=== PATIENT | female | born 2000 | race Caucasian/White ===

== ENCOUNTER 2018-02-21 11:11 | Inpatient (IN) ==
[2018-02-21] MEDS ORDERED: fentaNYL Citrate Inj 100 MCG/2 ML Ampul IV.PUSH PRN ×2 (15:29)
[2018-02-21] MEDS ORDERED: Naloxone Inj 0.4 MG/ML Vial IV.PUSH PRN (15:29)
[2018-02-21] MEDS ORDERED: Oxytocin 30 Units/500ml Premix 30 UNITS/500 ML BAG IV.SIG ONE (15:29)
[2018-02-21] MEDS ORDERED: Sodium Chlor 0.9% Inj 500 ML IV.SIG PRN (15:29)
[2018-02-21] MEDS ORDERED: Sod Chloride 0.9% Inj 1,000 ML IV.CONT PRN (15:29)
[2018-02-21] MEDS ORDERED: Citric Acid/Sodium Citrate Liq 30 ML UDC PO SCH (15:30)
[2018-02-21 15:39] LABS: Baso # (Auto) 0.1 th/mm3 (0.0-0.2); Baso % (Auto) 0.4 % (0.0-2.0); Eos # (Auto) 0.1 th/mm3 (0.0-0.4); Eos % (Auto) 0.6 % (0.0-4.0); Hematocrit 30.9 % (35.0-46.0); Hemoglobin 9.9 gm/dL (11.6-15.3); Lymph # (Auto) 2.4 th/mm3 (1.0-4.8); Lymph % (Auto) 20.7 % (9.0-44.0); Mean Corpuscular HGB Conc 32.1 % (32.0-36.0); Mean Corpuscular Hemoglobin 27.2 pg (27.0-34.0); Mean Corpuscular Volume 84.8 fL (80.0-100.0); Mean Platelet Volume 9.4 fL (7.0-11.0); Mono # (Auto) 0.8 th/mm3 (0.0-0.9); Mono % (Auto) 6.9 % (0.0-8.0); Neut # (Auto) 8.4 th/mm3 (1.8-7.7); Neut % (Auto) 71.4 % (16.0-70.0); Platelet Count 208 th/mm3 (150-450); Red Blood Count 3.64 mil/mm3 (4.00-5.30); Red Cell Distribution Width 15.1 % (11.6-17.2); White Blood Count 11.8 th/mm3 (4.0-11.0)
[2018-02-21] MEDS ORDERED: Sodium Chloride 0.9% 2 ML Flush PRN IV.FLUSH (15:42)
[2018-02-21] MEDS ORDERED: Influenza (Quadrivalent) Vaccine 0.5 ML Syringe IM ONE (16:00)
--- NOTE | 2018-02-21 18:53 | P.HPOB ---
History of Present Illness Primary Care Physician: AZUL Esquivel Chief Complaint: unequivocal NST History of Present Illness: 17-year-old female at 40+ WGA presented from her OB appointment this afternoon due to an equivocal NST. Patient denies any complications during this . Patient denies any vaginal bleeding, gush of fluid, is feeling baby move okay. GBS negative PMH: None PSX: None Medications: vitamins, iron Allergies: Penicillin Social: No smoking, no drugs during , no alcohol drinking Weeks Gestation:: 40 Para: 0 : 1 - Inpatient Certification I certify that the inpatient services were ordered in accordance with Medicare regulations governing the order. This includes certification that hospital inpatient services are reasonable and necessary and in the case of services not specified as inpatient-only under 42 CFR 419.22(n), that they are appropriately provided as inpatient services in accordance to with the 2-midnight benchmark under 43 CFR 412.3(e) Estimated Total Length of Stay (Days): 3 Plans for Post Hospital Care: Home Review of Systems All other systems reviewed negative except as stated in HPI PMFSH - History History Provided By: Patient - Medical / Surgical Hx Neg / Unobtainable Medical Problems Denied: Yes Surgical History: No Previous Surgery - Social History I have reviewed the patient's Social History: Yes - Tobacco History Second Hand Smoke Exposure: No Tobacco Use In Past 30 Days: No Smoking Status: Never smoker - Alcohol History How Often Do You Have a Drink Containing Alcohol: Never - Substance Use History Substance History: No History of Abuse - Travel History Recent Travel in the [place] Within the Last 8 Weeks: No Recent Travel Out of the Country Within the Last 8 Weeks: No - Immunization History Tetanus Immunization: Unsure Hx Influenza Vaccine This Season: No Medications and Allergies Allergies Allergy/AdvReac Type Severity Reaction Status Date / Time Penicillins Allergy Mild Rash Verified 02/21/18 19:43 Active Medications: Active Medications Citric Acid/Sodium Citrate (Sodium Citrate/Citric Acid Liq) 30 ml PO DIET TECHNICIAN REGISTERED [facility] Stop: 02/25/18 15:29 Fentanyl Citrate (Fentanyl Inj) 50 mcg IV.PUSH Q1H PRN PRN Reason: Pain Scale 3 - 5 Fentanyl Citrate (Fentanyl Inj) 100 mcg IV.PUSH Q1H PRN PRN Reason: PAIN SCALE 6 TO 10 Lactated Ringer's (Lr 1000 Ml Inj) 1,000 mls @ 125 mls/hr IV.CONT .Q8H LISA Lactated Ringer's (Lr 1000 Ml Inj) 1,000 mls @ 3,000 mls/hr IV.SIG UNSCH PRN PRN Reason: compromise or epidural Sodium Chloride (Ns Inj) 500 mls @ 1,000 mls/hr IV.SIG UNSCH PRN PRN Reason: SEE LABEL COMMENTS Sodium Chloride (Ns Inj) 1,000 mls @ 100 mls/hr IV.CONT .Q10H PRN PRN Reason: SEE LABEL COMMENTS Lidocaine HCl (Xylocaine 1% Inj) 0.1 ml I-DERMAL PRN PRN PRN Reason: For IV start Stop: 02/24/18 15:28 Lidocaine HCl (Xylocaine 1% Inj) 10 ml INFILTRATN PRN PRN PRN Reason: For episiotomy repair Stop: 02/23/18 15:28 Mineral Oil (Muri-Lube Oil) 10 ml TOPICAL PRN PRN PRN Reason: PRN perineal massage Naloxone HCl (Narcan Inj) 0.1 mg IV.PUSH Q2M PRN PRN Reason: for opiate reversal Sodium Chloride (Ns Flush) 2 ml IV.FLUSH BID LISA Sodium Chloride (Ns Flush) 2 ml IV.FLUSH PRN PRN PRN Reason: FLUSH AFTER USING IV ACCESS Exam Vital signs: Vital Signs 02/21/18 11:50 02/21/18 17:51 02/21/18 17:53 Temperature 98.7 F Pulse Rate 102 H 110 H Respiratory Rate 18 17 Blood Pressure 119/69 122/74 Intake & Output 02/20/18 02/21/18 02/21/18 18:59 06:59 18:59 Weight 83.007 kg Other: Weight On Admission 83.007 kg Narrative: GENERAL: Well-nourished, well-developed patient. SKIN: Warm and dry. HEAD: Normocephalic and atraumatic. EYES: No scleral icterus. No injection or drainage. ENT: No nasal drainage noted. Mucous membranes pink. Airway patent. NECK: Supple, trachea midline. No JVD. CARDIOVASCULAR: Regular rate and rhythm without murmurs, gallops, or rubs. RESPIRATORY: Breath sounds equal bilaterally. No accessory muscle use. ABDOMEN/GI: Abdomen soft, non-tender, bowel sounds present, no rebound, no guarding GENITOURINARY: External Genitalia: intact and normal in appearance BUS glands: normal Cervix: posterior Dilatation: 1 cm Effacement: 70% Station: -2 Presentation: Vertex Membranes: Intact Uterine Contractions: Sporadic FHT's: Category: 1 Baseline: 140 Reactive: yes Variability: moderate EXTREMITIES: No cyanosis or edema. BACK: Nontender without obvious deformity. No CVA tenderness. NEUROLOGICAL: Awake and alert. Motor and sensory grossly within normal limits. Normal speech. Results - Labs CBC & Chem 7: 02/21/18 13:15 Labs: Laboratory Results - last 24 hr 02/21/18 02/21/18 13:15 13:15 WBC 11.8 H RBC 3.64 L Hgb 9.9 L Hct 30.9 L MCV 84.8 MCH 27.2 MCHC 32.1 RDW 15.1 Plt Count 208 MPV 9.4 Neut % (Auto) 71.4 H Lymph % (Auto) 20.7 [place] % (Auto) 6.9 Eos % (Auto) 0.6 Baso % (Auto) 0.4 Neut # (Auto) 8.4 H Lymph # (Auto) 2.4 [place] # (Auto) 0.8 Eos # (Auto) 0.1 Baso # (Auto) 0.1 WBC Differential . Differential Comment Auto diff final Blood Type B Positive Blood Type Recheck Required Group B Strep: Negative Caprini VTE Risk Assessment Caprini VTE Risk Assessment: No/Low Risk (score <= 1) Caprini Risk Assessment Model: Point Value = 1 Point Value = 2 Point Value = 3 Point Value = 5 Age 41-60 Minor surgery BMI > 25 kg/m2 Swollen legs Varicose veins or History of unexplained or recurrent spontaneous Oral contraceptives or hormone replacement Sepsis (< 1 month) Serious lung disease, including pneumonia (< 1 month) Abnormal pulmonary function Acute myocardial infarction Congestive heart failure (< 1 month) History of inflammatory bowel disease Medical patient at bed rest Age 61-74 Arthroscopic surgery Major open surgery (> 45 min) Laparoscopic surgery (> 45 min) Malignancy Confined to bed (> 72 hours) Immobilizing plaster cast Central venous access Age >= 75 History of VTE Family history of VTE Factor V Leiden Prothrombin [id number] Lupus anticoagulant Anticardiolipin antibodies Elevated serum homocysteine Heparin-induced thrombocytopenia Other congenital or acquired thrombophilia Stroke (< 1 month) Elective arthroplasty Hip, pelvis, or leg fracture Acute spinal cord injury (< 1 month) Prophylaxis Regimen: Total Risk Factor Score Risk Level Prophylaxis Regimen 0-1 Low Early ambulation 2 Moderate Order ONE of the following: *Sequential Compression Device (SCD) *Heparin 5000 units SQ BID 3-4 Higher Order ONE of the following medications: *Heparin 5000 units SQ TID *Enoxaparin/Lovenox 40 mg SQ daily (WT < 150 kg, CrCl > 30 mL/min) *Enoxaparin/Lovenox 30 mg SQ daily (WT < 150 kg, CrCl > 10-29 mL/min) *Enoxaparin/Lovenox 30 mg SQ BID (WT < 150 kg, CrCl > 30 mL/min) AND/OR *Sequential Compression Device (SCD) 5 or more Highest Order ONE of the following medications: *Heparin 5000 units SQ TID (Preferred with Epidurals) *Enoxaparin/Lovenox 40 mg SQ daily (WT < 150 kg, CrCl > 30 mL/min) *Enoxaparin/Lovenox 30 mg SQ daily (WT < 150 kg, CrCl > 10-29 mL/min) *Enoxaparin/Lovenox 30 mg SQ BID (WT < 150 kg, CrCl > 30 mL/min) AND *Sequential Compression Device (SCD) Assessment and Plan - Diagnosis (1) Post-dates Code(s): O48.0 - Post-term Status: Acute (2) Encounter for induction of labor Code(s): Z34.90 - Encounter for supervision of normal , unspecified, unspecified trimester Status: Acute (3) Postmaturity , 40-42 weeks gestation Code(s): O48.0 - Post-term Status: Acute - Plan 17-year-old female at 40/2 WGA admitted for induction of labor Plan: Admit to labor and delivery Reactive category 1 tracing Cervidil cervical ripening Anticipate vaginal delivery Seen and discussed with Dr. Keenan
[2018-02-21] MEDS ORDERED: Sodium Chloride 0.9% 2 ML Flush BID IV.FLUSH SCH (21:00)
[2018-02-22] MEDS ORDERED: Oxytocin 30 Units/500ml Premix 30 UNITS/500 ML BAG IV.CONT PRN ×2 (08:12→23:50)
[2018-02-22] MEDS ORDERED: Oxytocin 30 Units/500ml Premix 30 UNITS/500 ML BAG IV.SIG PRN (10:25)
--- NOTE | 2018-02-22 14:10 | P.OBLABOR ---
Subjective Interval history: Patient doing well. No complaints. AROM by Dr. Medrano Objective Vital Signs: Vital Signs - 8 hr 02/22/18 07:14 02/22/18 09:06 02/22/18 09:15 Temperature 98.6 F Pulse Rate 114 H 97 H 86 Respiratory Rate 18 Blood Pressure 129/67 94/60 L 99/53 L 02/22/18 09:45 02/22/18 10:18 02/22/18 10:30 Temperature 98.7 F Pulse Rate 84 102 H 95 H Respiratory Rate Blood Pressure 101/52 L 95/55 L 100/53 L 02/22/18 10:45 02/22/18 11:00 02/22/18 11:13 Temperature Pulse Rate 93 H 90 Respiratory Rate 18 Blood Pressure 102/53 L 100/50 L 02/22/18 11:14 02/22/18 11:30 02/22/18 12:00 Temperature Pulse Rate 88 102 H 109 H Respiratory Rate Blood Pressure 91/50 L 94/58 L 97/84 L 02/22/18 12:30 02/22/18 13:00 02/22/18 13:33 Temperature 99.1 F Pulse Rate 86 101 H 166 H Respiratory Rate 18 Blood Pressure 111/69 113/69 175/153 H Objective: Pelvic Exam: Cervix: posterior Dilatation: 3 Effacement: 80 Station: -2 Presentation: vertex Membranes: AROM Uterine Contractions: - FHT's: Category: 1 Baseline: 140 Reactive: yes Variability: moderate Decels: none Assessment and Plan - Diagnosis (1) Post-dates Code(s): O48.0 - Post-term Status: Acute (2) Encounter for induction of labor Code(s): Z34.90 - Encounter for supervision of normal , unspecified, unspecified trimester Status: Acute - Plan 17-year-old female at 40/2 WGA admitted for induction of labor -Cervix: 380/-1 -continue with Pitocen for augmentation -AROM by Dr. Medrano -Anticipate vaginal delivery sdw Dr. Carlson
[2018-02-22] MEDS ORDERED: fentaNYL 2MCG-Bupiv 0.125% Epi 150 ML EPIDURAL ONE (15:20)
[2018-02-22] MEDS ORDERED: Measles/Mumps/Rubella Vaccine Inj 0.5 ML Vial SQ ONE (16:00)
[2018-02-22] MEDS ORDERED: Diphtheria/Tetanus/Pertussis Vaccine Inj 0.5 ML Syringe IM ONE (16:00)
[2018-02-22] MEDS ORDERED: Lidocaaine 1.5%/Epinephrine 1:200,000 PF Inj 5 ML Amp ONE (16:03)
[2018-02-22] MEDS ORDERED: Lidocaine PF 1% Inj 5 ML Vial ONE (16:03)
[2018-02-22] MEDS ORDERED: Sodium Chlor 0.9% Inj 10 ML ONE (16:03)
[2018-02-22] MEDS ORDERED: fentaNYL Citrate Inj 100 MCG/2 ML Ampul EPIDURAL ONE (17:44)
[2018-02-22] MEDS ORDERED: fentaNYL 2MCG-Bupiv 0.125% Epi 150 ML EPIDURAL PRN (17:44)
--- NOTE | 2018-02-22 19:00 | P.OBLABOR ---
Subjective Interval history: Patient laying in bed. Status post epidural. Still feeling pressure but less contractions. Objective Vital Signs: Vital Signs - 8 hr 02/22/18 11:00 02/22/18 11:13 02/22/18 11:14 Temperature Pulse Rate 90 88 Respiratory Rate 18 Blood Pressure 100/50 L 91/50 L 02/22/18 11:30 02/22/18 12:00 02/22/18 12:30 Temperature 99.1 F Pulse Rate 102 H 109 H 86 Respiratory Rate 18 Blood Pressure 94/58 L 97/84 L 111/69 02/22/18 13:00 02/22/18 13:33 02/22/18 14:30 Temperature Pulse Rate 101 H 166 H 98 H Respiratory Rate Blood Pressure 113/69 175/153 H 125/82 02/22/18 14:34 02/22/18 15:35 02/22/18 15:36 Temperature 98.9 F Pulse Rate 113 H 96 H Respiratory Rate Blood Pressure 138/84 02/22/18 15:39 02/22/18 15:42 02/22/18 15:43 Temperature Pulse Rate 87 87 86 Respiratory Rate Blood Pressure 120/63 119/66 109/64 02/22/18 15:48 02/22/18 15:51 02/22/18 15:54 Temperature Pulse Rate 90 86 83 Respiratory Rate Blood Pressure 125/72 118/69 110/68 02/22/18 15:57 02/22/18 16:06 02/22/18 16:25 Temperature Pulse Rate 86 73 70 Respiratory Rate Blood Pressure 110/66 103/63 111/59 L 02/22/18 16:30 02/22/18 16:45 02/22/18 17:00 Temperature 98.3 F Pulse Rate 70 87 74 Respiratory Rate 18 Blood Pressure 112/64 106/64 110/72 02/22/18 17:15 02/22/18 17:43 02/22/18 17:45 Temperature Pulse Rate 77 79 76 Respiratory Rate 18 Blood Pressure 107/69 112/72 113/67 02/22/18 18:15 02/22/18 18:30 02/22/18 18:40 Temperature Pulse Rate 86 99 H Respiratory Rate 18 18 Blood Pressure 123/79 101/63 02/22/18 18:57 Temperature Pulse Rate 103 H Respiratory Rate 18 Blood Pressure 102/62 Objective: Pelvic Exam: Cervix: Midposition Dilatation: 5 cm Effacement: 100 Station: -1 Presentation: Vertex Membranes: Ruptured Uterine Contractions: Every 2 minutes FHT's: Category: 1 Baseline: 145 Reactive: yes Variability: moderate Decels: none Assessment and Plan - Diagnosis (1) Post-dates Code(s): O48.0 - Post-term Status: Acute (2) Encounter for induction of labor Code(s): Z34.90 - Encounter for supervision of normal , unspecified, unspecified trimester Status: Acute - Plan 17-year-old female at 40/2 WGA admitted for induction of labor -Cervix: 5/100/-1 -continue with Pitocen for augmentation -IUPC placed. -Anticipate vaginal delivery
[2018-02-22] MEDS ORDERED: Naloxone Inj 0.4 MG/ML Vial IV.PUSH PRN (23:50)
[2018-02-22] MEDS ORDERED: Zolpidem Tartrate 5 MG Tablet PO PRN (23:50)
[2018-02-22] MEDS ORDERED: Bisacodyl 10 MG Supp RECTAL PRN (23:50)
[2018-02-22] MEDS ORDERED: Benzocaine 20% Top Spray 60 ML Can TOPICAL PRN (23:50)
[2018-02-22] MEDS ORDERED: Witch Hazel 50%/Glyderin 12.5% 40 Pad Jar RECTAL PRN (23:50)
--- NOTE | 2018-02-23 00:13 | P.OBDELI ---
Weeks Gestation: 40 Episiotomy: midline Vaginal Delivery: Normal Nuchal Cord: None Delayed Cord Clamping (45 sec): Yes Placenta: Spontaneous delivery Laceration: Episiotomy Repair: Chromic running Estimated blood loss (mL): 100 Infant: Male Infant Male A Delivery Date: 02/23/18 Delivery Time: 23:36 Weight: 3.675 kg score (1 min): 8 score (5 min): 9
--- NOTE | 2018-02-23 07:20 | P.PNOB ---
Subjective Interval history: 17 year old female G1P! s/p IVD at 40 wks gestation, PPD0. AFVSS. Patient reports she is feeling well. Bleeding is decreasing and pain is well- controlled. Ambulating without difficulties. She is tolerating a diet without nausea or vomiting. She has not had a bowel movement. She has passed gas. Denies chest pain, dysuria, shortness of breath, or calf pain. Objective Vital Signs/I&O: Vital Signs 02/22/18 09:06 02/22/18 09:15 02/22/18 09:45 Temperature Pulse Rate 97 H 86 84 Respiratory Rate Blood Pressure 94/60 L 99/53 L 101/52 L 02/22/18 10:18 02/22/18 10:30 02/22/18 10:45 Temperature 98.7 F Pulse Rate 102 H 95 H 93 H Respiratory Rate Blood Pressure 95/55 L 100/53 L 102/53 L 02/22/18 11:00 02/22/18 11:13 02/22/18 11:14 Temperature Pulse Rate 90 88 Respiratory Rate 18 Blood Pressure 100/50 L 91/50 L 02/22/18 11:30 02/22/18 12:00 02/22/18 12:30 Temperature 99.1 F Pulse Rate 102 H 109 H 86 Respiratory Rate 18 Blood Pressure 94/58 L 97/84 L 111/69 02/22/18 13:00 02/22/18 13:33 02/22/18 14:30 Temperature Pulse Rate 101 H 166 H 98 H Respiratory Rate Blood Pressure 113/69 175/153 H 125/82 02/22/18 14:34 02/22/18 15:35 02/22/18 15:36 Temperature 98.9 F Pulse Rate 113 H 96 H Respiratory Rate Blood Pressure 138/84 02/22/18 15:39 02/22/18 15:42 02/22/18 15:43 Temperature Pulse Rate 87 87 86 Respiratory Rate Blood Pressure 120/63 119/66 109/64 02/22/18 15:48 02/22/18 15:51 02/22/18 15:54 Temperature Pulse Rate 90 86 83 Respiratory Rate Blood Pressure 125/72 118/69 110/68 02/22/18 15:57 02/22/18 16:06 02/22/18 16:25 Temperature Pulse Rate 86 73 70 Respiratory Rate Blood Pressure 110/66 103/63 111/59 L 02/22/18 16:30 02/22/18 16:45 02/22/18 17:00 Temperature 98.3 F Pulse Rate 70 87 74 Respiratory Rate 18 Blood Pressure 112/64 106/64 110/72 02/22/18 17:15 02/22/18 17:43 02/22/18 17:45 Temperature Pulse Rate 77 79 76 Respiratory Rate 18 Blood Pressure 107/69 112/72 113/67 02/22/18 18:15 02/22/18 18:30 02/22/18 18:40 Temperature Pulse Rate 86 99 H Respiratory Rate 18 18 Blood Pressure 123/79 101/63 02/22/18 18:57 02/22/18 19:00 02/22/18 19:13 Temperature 97.9 F Pulse Rate 103 H 91 H Respiratory Rate 18 18 Blood Pressure 102/62 100/66 02/22/18 19:15 02/22/18 19:31 02/22/18 19:45 Temperature Pulse Rate 94 H 111 H 82 Respiratory Rate Blood Pressure 98/68 L 96/63 L 103/64 02/22/18 20:30 02/22/18 20:43 02/22/18 20:45 Temperature Pulse Rate 228 H 82 89 Respiratory Rate Blood Pressure 90/70 L 110/68 102/70 02/22/18 21:00 02/22/18 21:15 02/22/18 21:30 Temperature Pulse Rate 121 H 99 H 95 H Respiratory Rate Blood Pressure 112/75 103/61 113/74 02/22/18 22:00 02/22/18 22:30 02/22/18 22:45 Temperature Pulse Rate 93 H 101 H 99 H Respiratory Rate Blood Pressure 93/60 L 103/70 104/65 02/22/18 22:56 02/22/18 23:00 02/22/18 23:15 Temperature 97.7 F Pulse Rate 102 H 112 H Respiratory Rate Blood Pressure 101/70 134/56 L 02/22/18 23:45 02/23/18 00:18 02/23/18 00:30 Temperature Pulse Rate 96 H 98 H 85 Respiratory Rate 18 Blood Pressure 100/55 L 103/61 110/65 02/23/18 00:45 02/23/18 01:00 02/23/18 01:15 Temperature Pulse Rate 88 84 Respiratory Rate Blood Pressure 124/66 117/62 120/88 02/23/18 01:31 02/23/18 02:00 Temperature 98.5 F Pulse Rate 92 H 69 Respiratory Rate 18 Blood Pressure 115/61 117/59 L Intake & Output 02/22/18 02/23/18 02/23/18 18:59 06:59 18:59 Intake Total 1000 / 1000 Balance 1000 / 1000 Intake: IV 1000 / 1000 LR 1000 mL Inj 1,000 ML @ 125 1000 / 1000 mls/hr IV.CONT .Q8H [facility] Rx#: [id number] Result Diagrams: 02/21/18 13:15 Objective Remarks: GENERAL: Well-nourished, well-developed patient. CARDIOVASCULAR: Regular rate and rhythm without murmurs, gallops, or rubs. RESPIRATORY: Breath sounds equal bilaterally. No accessory muscle use. ABDOMEN/GI: Abdomen soft, non-tender. Fundus: Firm, non-tender at umbilicus. GENITOURINARY: Light to moderate bleeding. EXTREMITIES: No cyanosis or edema, non-tender, without signs of DVT. Medications and IVs: Active Medications Acetaminophen (Tylenol) 650 mg PO Q4H PRN PRN Reason: PAIN SCALE 1 TO 2 Al Hydroxide/Mg Hydroxide (Milk Of Magnesia Liq) 30 ml PO Q12H PRN PRN Reason: Mild Constipation Benzocaine (Americaine 20% [place]) 1 spray TOPICAL Q4H PRN PRN Reason: For Perineum Discomfort Last Admin: 02/23/18 02:21 Dose: 1 spray Bisacodyl (Dulcolax Supp) 10 mg RECTAL DAILY PRN PRN Reason: SEVERE CONSITIPATION Ephedrine Sulfate (Ephedrine/Ns Syringe) 10 mg IV.PUSH UNSCH PRN PRN Reason: SEE LABEL COMMENTS Stop: 02/23/18 17:44 Oxytocin (Pitocin 30 Units/Ns 500 Ml Premix) 30 units in 500 mls @ 2 mls/hr IV.SIG TITRATE PRN; Protocol PRN Reason: For induction of labor Fentanyl/Bupivacaine/Sodium Chlor (Fentanyl 2 Mcg-Bupiv 0.125% Epi) 150 mls @ 12 mls/hr EPIDURAL PRN PRN PRN Reason: for Labor Pain Oxytocin (Pitocin 30 Units/Ns 500 Ml Premix) 30 units in 500 mls @ 100 mls/hr IV.CONT UNSCH PRN PRN Reason: Heavy bleeding Ibuprofen (Motrin) 800 mg PO Q8H PRN PRN Reason: For Cramping Last Admin: 02/23/18 02:20 Dose: 800 mg Lactulose (Lactulose Liq) 30 ml PO DAILY PRN PRN Reason: SEVERE CONSITIPATION Miscellaneous Information (Misc Information) 1 each OTHER UNSCH PRN PRN Reason: SEE LABEL COMMENTS Stop: 02/23/18 17:44 Miscellaneous Information (Misc Information) 1 each OTHER UNSCH PRN PRN Reason: SEE LABEL COMMENTS Stop: 02/23/18 17:44 Naloxone HCl (Narcan Inj) 0.1 mg IV.PUSH Q2M PRN PRN Reason: for opiate reversal Ondansetron HCl (Zofran Inj) 4 mg IV.PUSH Q6H PRN PRN Reason: NAUSEA/VOMITING Ondansetron HCl (Zofran Odt) 4 mg PO Q6H PRN PRN Reason: NAUSEA OR VOMITING Senna/Docusate Sodium (Ely-Colace) 1 tab PO BID LISA Sennosides (Senokot) 17.2 mg PO Q12H PRN PRN Reason: Moderate Constipation Sodium Chloride (Ns Flush) 2 ml IV.FLUSH BID LISA Sodium Chloride (Ns Flush) 2 ml IV.FLUSH PRN PRN PRN Reason: FLUSH AFTER USING IV ACCESS Witch [place]/Glycerin (Tucks Pads) 1 applicatio RECTAL QID PRN PRN Reason: HEMORRHOIDS Last Admin: 02/23/18 02:21 Dose: 1 applicatio Zolpidem Tartrate (Ambien) 5 mg PO HS PRN PRN Reason: SLEEP Assessment and Plan - Diagnosis (1) Vaginal delivery Code(s): O80 - Encounter for full-term uncomplicated delivery Status: Acute - Plan 17 yo female s/p IVD, PPD0 - AFVSS - Continue routine care - Motrin PRN pain - Encourage OOB - Pelvic rest x 6 wks. - Contraception: undecided - Anticipate D/C 1-[address] Carlson
[2018-02-23] MEDS: Acetaminophen 325 MG Tablet PO PRN ×3 (08:06→22:54)
[2018-02-23] MEDS: Senna/Docusate Sodium 8.6/50 MG Tablet PO SCH ×2 (08:06→22:26)
[2018-02-24] MEDS: Acetaminophen 325 MG Tablet PO PRN ×2 (02:48→10:44)
--- NOTE | 2018-02-24 08:47 | P.PNOB ---
Subjective Post day: 1 Interval history: 17 year old female s/p IVD at 40 wks gestation, PPD2 . AFVSS. Patient reports she is feeling well. Bleeding is decreasing and pain is well- controlled. Ambulating without difficulties. She is tolerating a diet without nausea or vomiting. She has not had a bowel movement. She has passed gas. Denies chest pain, dysuria, shortness of breath, or calf pain. Objective Vital Signs/I&O: Vital Signs 02/23/18 14:35 02/23/18 20:00 Temperature 97.8 F Pulse Rate 80 87 Respiratory Rate 18 Blood Pressure 126/81 Result Diagrams: 02/21/18 13:15 Objective Remarks: GENERAL: Well-nourished, well-developed patient. CARDIOVASCULAR: Regular rate and rhythm without murmurs, gallops, or rubs. RESPIRATORY: Breath sounds equal bilaterally. No accessory muscle use. ABDOMEN/GI: Abdomen soft, non-tender. Fundus: Firm, non-tender at umbilicus. GENITOURINARY: Light to moderate bleeding. EXTREMITIES: No cyanosis or edema, non-tender, without signs of DVT. Medications and IVs: Active Medications Acetaminophen (Tylenol) 650 mg PO Q4H PRN PRN Reason: PAIN SCALE 1 TO 2 Last Admin: 02/24/18 02:48 Dose: 650 mg Al Hydroxide/Mg Hydroxide (Milk Of Manjit [place]) 30 ml PO Q12H PRN PRN Reason: Mild Constipation Benzocaine (Americaine 20% [place]) 1 spray TOPICAL Q4H PRN PRN Reason: For Perineum Discomfort Last Admin: 02/23/18 02:21 Dose: 1 spray Bisacodyl (Dulcolax Supp) 10 mg RECTAL DAILY PRN PRN Reason: SEVERE CONSITIPATION Oxytocin (Pitocin 30 Units/Ns 500 Ml Premix) 30 units in 500 mls @ 2 mls/hr IV.SIG TITRATE PRN; Protocol PRN Reason: For induction of labor Fentanyl/Bupivacaine/Sodium Chlor (Fentanyl 2 Mcg-Bupiv 0.125% Epi) 150 mls @ 12 mls/hr EPIDURAL PRN PRN PRN Reason: for Labor Pain Last Admin: 02/22/18 15:42 Dose: 12 mls/hr Oxytocin (Pitocin 30 Units/Ns 500 Ml Premix) 30 units in 500 mls @ 100 mls/hr IV.CONT UNSCH PRN PRN Reason: Heavy bleeding Ibuprofen (Motrin) 800 mg PO Q8H PRN PRN Reason: For Cramping Last Admin: 02/24/18 02:47 Dose: 800 mg Lactulose (Lactulose Liq) 30 ml PO DAILY PRN PRN Reason: SEVERE CONSITIPATION Naloxone HCl (Narcan Inj) 0.1 mg IV.PUSH Q2M PRN PRN Reason: for opiate reversal Ondansetron HCl (Zofran Inj) 4 mg IV.PUSH Q6H PRN PRN Reason: NAUSEA/VOMITING Ondansetron HCl (Zofran Odt) 4 mg PO Q6H PRN PRN Reason: NAUSEA OR VOMITING Senna/Docusate Sodium (Ely-Colace) 1 tab PO BID [facility] Last Admin: 02/23/18 22:26 Dose: 1 tab Sennosides (Senokot) 17.2 mg PO Q12H PRN PRN Reason: Moderate Constipation Sodium Chloride (Ns Flush) 2 ml IV.FLUSH BID [facility] Last Admin: 02/23/18 22:46 Dose: Not Given Sodium Chloride (Ns Flush) 2 ml IV.FLUSH PRN PRN PRN Reason: FLUSH AFTER USING IV ACCESS Witch [place]ua/Glycerin (Tucks Pads) 1 applicatio RECTAL QID PRN PRN Reason: HEMORRHOIDS Last Admin: 02/23/18 02:21 Dose: 1 applicatio Zolpidem Tartrate (Ambien) 5 mg PO HS PRN PRN Reason: SLEEP Assessment and Plan - Diagnosis (1) Vaginal delivery Code(s): O80 - Encounter for full-term uncomplicated delivery Status: Acute - Plan Patient is a 17-year-old G 1 P 1 delivered at 40 weeks. Patient is day 2 after . Patient was counseled to do 6 weeks of pelvic rest. Patient was counseled to follow up in 6 weeks. Patient requested follow-up and contraception. --AF VSS --Continue routine care --Motrin and Tylenol when necessary for pain --Encourage OOB --Pelvic rest for 6 weeks will need follow-up appointment at that time. --Contraception: Arm implant --Discharge today Discussed with Dr. Coelho and Dr. Benavides
[2018-02-24] MEDS: Senna/Docusate Sodium 8.6/50 MG Tablet PO SCH (09:17)
[2018-02-24 10:36] VITALS: BP 118/58; PULSE 80; RESP 16; TEMP 98.2
[2018-02-24 16:37] LABS: Amphetamine Urine With Conf Neg (Neg); Benzodiazepine Urine With Conf Neg (Neg); Cocaine Urine With Conf Neg (Neg); Opiates Urine With Conf Neg (Neg)
[2018-02-24 16:40] LABS: Cannabinoid Urine With Conf Neg (Neg)
== END 2018-02-24 19:01 | disposition home or self-care (01) ==
LOC: HOBED 11:11 → H2E 11:50 → H1EA 02-23 02:27
PROVIDERS: ADMIT Obstetrics & Gynecology; ATTEND Obstetrics & Gynecology